=== PATIENT | male | born 1955 | race Caucasian/White ===

== ENCOUNTER → 2018-05-12 08:38 | Outpatient (CLI) | payer OTHER, SELFPAY ==
[2018-05-12 10:06] LABS: Hemoglobin A1C% w Est Avg Glu 5.9 % (4.0-6.0)
[2018-05-12 10:19] LABS: Alanine Aminotransferase 52 IU/L (21-72); Albumin 4.4 g/dL (3.5-5.0); Albumin Globulin Ratio 1.9 (1.0-2.8); Alkaline Phosphatase 52 U/L (38-126); Aspartate Aminotransferase 29 IU/L (17-59); Bilirubin Total 0.9 mg/dL (0.2-1.3); Bilirubin Unconjugated 0.7 mg/dL (0.0-1.1); Cholesterol 186 mg/dL (140-199); Globulin 2.3 g/dL (1.7-4.1); Glucose 118 mg/dL (80-110); HDL Cholesterol 54 mg/dL (40-60); HEMOLYSIS < 15 (0-50); LDL Cholesterol Calculated 110 mg/dL (<100); Total Protein 6.7 g/dL (6.3-8.2); Triglycerides 112 mg/dL (35-150)
== END ==
PROVIDERS: Visit Provider Naturopath
DX: E88.81 Metabolic syndrome and other insulin resistance (principal); I10 Essential (primary) hypertension
CPT/HCPCS: 36415; 80061; 80076; 82947; 83036

== ENCOUNTER → 2018-08-21 09:17 | Outpatient (CLI) | payer OTHER, SELFPAY ==
--- NOTE | 2018-08-21 | DI.US.S_ITS ---
PROCEDURE: US SCROTUM INDICATIONS: TESTICULAR PAIN TECHNIQUE: Real-time scanning was performed of the scrotum and testicles, with image documentation. Color and pulse Doppler interrogation was performed of both testicles. COMPARISON: None. FINDINGS: Right: Testicle is normal in size at 4.2 x 3.3 x 2.7 cm, and homogenous in echotexture. Epididymis is normal in overall size and morphology. No hydrocele or varicoceles. Overlying scrotal skin is normal in thickness. Left: Testicle is normal in size at 3.6 x 2.8 x 1.8 cm, and homogeneous in echotexture. Epididymis is normal in overall size and morphology. Subcentimeter left epididymal cyst. No hydrocele. Mild varicocele. Overlying scrotal skin is normal in thickness. Doppler: Color and pulse Doppler demonstrate normal and symmetric arterial flow in both testicles. IMPRESSION: 1. Normal testicles bilaterally. 2. Mild left hydrocele. 3. Subcentimeter left epididymal cyst. Dictated by: Robert WOLF Interpreted: Jolene Ahumada MD on 08/21/2018 at 11:57 Approved by: Jolene Ahumada M.D. on 08/21/2018 at 15:15
== END ==
PROVIDERS: PCP Naturopath; Visit Provider Naturopath
DX: N50.819 Testicular pain, unspecified (principal); N43.3 Hydrocele, unspecified; N50.3 Cyst of epididymis
CPT/HCPCS: 76870

== ENCOUNTER → 2019-03-01 10:09 | Outpatient (CLI) | payer OTHER, SELFPAY ==
[2019-03-01 11:09] LABS: Hemoglobin A1C% w Est Avg Glu 5.5 % (4.0-6.0)
[2019-03-01 11:14] LABS: Cholesterol 234 mg/dL (140-199); Glucose 108 mg/dL (80-110); HDL Cholesterol 50 mg/dL (40-60); LDL Cholesterol Calculated 157 mg/dL (<100); Triglycerides 136 mg/dL (35-150)
[2019-03-06 11:31] LABS: Insulin Level Total 7.1 uIU/mL (2.0-19.6)
== END ==
PROVIDERS: PCP Naturopath; Visit Provider Naturopath
DX: R73.9 Hyperglycemia, unspecified (principal); I10 Essential (primary) hypertension; E88.81 Metabolic syndrome and other insulin resistance
CPT/HCPCS: 36415; 80061; 82947; 83036; 83525

== ENCOUNTER → 2019-06-24 15:56 | Outpatient (CLI) | payer OTHER, SELFPAY ==
[2019-06-24 17:38] LABS: Hemoglobin A1C% w Est Avg Glu 5.4 % (4.0-6.0)
[2019-06-27 14:09] LABS: PSA Free % 15 % (calc) (> 25); PSA, Total 1.3 ng/mL (< 4.1)
== END ==
PROVIDERS: PCP Naturopath; Referring Provider Naturopath; Visit Provider Naturopath
DX: N40.1 Benign prostatic hyperplasia with lower urinary tract symptoms (principal); E88.81 Metabolic syndrome and other insulin resistance
CPT/HCPCS: 36415; 83036; 84153; 84154

== ENCOUNTER → 2019-06-27 15:12 | Outpatient (CLI) | payer OTHER, SELFPAY ==
--- NOTE | 2019-06-27 | DI.RAD.S_ITS ---
PROCEDURE: XR KNEE RT 1TO2V INDICATIONS: Right knee pain TECHNIQUE: 2 views of the knee were acquired. COMPARISON: None. FINDINGS: Bones: No fractures or dislocations. No suspicious bony lesions. There is moderately severe medial compartment joint space narrowing on the frontal projection and mild to moderate lateral compartment narrowing. No trauma or loose body found. Soft tissues: No joint effusion. No suspicious soft tissue calcifications. IMPRESSION: Asymmetric degenerative osteoarthritis at the tibial plateau greater medially than laterally. No effusion found. Dictated by: Wilner Ruiz M.D. on 06/27/2019 at 15:41 Approved by: Wilner Ruiz M.D. on 06/27/2019 at 15:42
== END ==
PROVIDERS: PCP Naturopath; Referring Provider Naturopath; Visit Provider Naturopath
DX: M25.561 Pain in right knee (principal); M17.11 Unilateral primary osteoarthritis, right knee
CPT/HCPCS: 73560

== ENCOUNTER → 2020-08-17 14:23 | Outpatient (CLI) | payer OTHER, SELFPAY ==
[2020-08-17 14:55] LABS: Alanine Aminotransferase 26 IU/L (<50); Albumin 4.2 g/dL (3.5-5.0); Albumin Globulin Ratio 1.6 (1.0-2.8); Alkaline Phosphatase 53 U/L (38-126); Aspartate Aminotransferase 26 IU/L (17-59); BUN Creatinine Ratio 16.3 (6-22); Bilirubin Total 0.3 mg/dL (0.2-1.3); Blood Urea Nitrogen 15 mg/dL (9-20); Calcium 9.4 mg/dL (8.4-10.2); Carbon Dioxide 25 mmol/L (22-32); Chloride 107 mmol/L (98-107); Estimated Glomerular Filt Rate > 60.0 mL/min (>60); Globulin 2.7 g/dL (1.7-4.1); Glucose 112 mg/dL (80-110); HEMOLYSIS < 15 (0-50); Sodium 139 mmol/L (137-145); Total Protein 6.9 g/dL (6.3-8.2)
[2020-08-17 14:56] LABS: Hemoglobin A1C% w Est Avg Glu 5.6 % (4.0-6.0)
[2020-08-17 15:27] LABS: Prostate Specific Antigen Scrn 1.68 ng/mL (0.1-4.0)
[2020-08-17 15:30] LABS: Testosterone 172 ng/dL (71.8-623)
== END ==
PROVIDERS: PCP Student in an Organized Health Care Education/Training Program; Referring Provider Student in an Organized Health Care Education/Training Program; Visit Provider Student in an Organized Health Care Education/Training Program
DX: E78.00 Pure hypercholesterolemia, unspecified (principal); Z79.1 Long term (current) use of non-steroidal anti-inflammatories (NSAID); Z12.5 Encounter for screening for malignant neoplasm of prostate; R53.83 Other fatigue; R63.5 Abnormal weight gain
CPT/HCPCS: 36415; 80053; 83036; 84403; G0103

== ENCOUNTER → 2021-03-03 09:41 | Outpatient (CLI) | payer MEDICARE, OTHER, SELFPAY ==
--- NOTE | 2021-04-06 08:53 | PM.CARDMON.1 ---
[employer]imator Report Referral & Results Date Patient Seen: 03/09/21 Requesting provider: David Hernandez Indication: Syncope Duration of monitoring (days): 10 Diary information: There were 3 patient triggered events and 1 patient diary entry Patient triggered events were associated with (within 45 seconds) sinus rhythm and SVT Patient diary event was associated with SVT Data: Minimum heart rate identified was 40 beats per minute at 04:01 on 03/16/2021 Maximum sinus heart rate was 169 beats per minute at 10:23 on 03/17/2021 Maximum overall heart rate was 218 beats per minute at 19:37 on 03/14/2021 during a run of SVT Less than 1% of identified beats were ventricular or supraventricular ectopic in origin, which would classify them as rare. There were 7 runs of SVT the fastest at the above-mentioned rate of 218 beats per minute lasted for 5 minutes and 11 seconds which was also the longest run Impression: 10 day residential monitor demonstrating rare relatively brief but Andrews runs of SVT This may well correlate with patient events given patient diary entry Clinical correlation suggested
== END ==
PROVIDERS: PCP Student in an Organized Health Care Education/Training Program; Referring Provider Student in an Organized Health Care Education/Training Program; Visit Provider Student in an Organized Health Care Education/Training Program
DX: R55 Syncope and collapse (principal)
CPT/HCPCS: 93246; 93248

== ENCOUNTER → 2021-03-17 07:41 | Outpatient (CLI) | payer MEDICARE, OTHER, SELFPAY ==
--- NOTE | 2021-03-17 07:43 | DI.US.S_ITS ---
PROCEDURE: US ABD AORTA ANEURYSM SCREEN INDICATIONS: SCREENING TECHNIQUE: Real time scanning was performed of the aorta and iliac arteries, with image documentation. COMPARISON: None. FINDINGS: Aorta: Proximal aortic diameter measures 2.7 cm. Mid-aorta measures of 2.3 cm. Distal aortic diameter is 1.9 cm. Iliac arteries: Right common iliac artery measures 1.4 cm. Left common iliac artery measures 1 is.5 cm. IMPRESSION: No aneursymal dilation. Dictated by: Jolene Ahumada M.D. on 03/17/2021 at 16:22 Approved by: Jolene Ahumada M.D. on 03/17/2021 at 16:23
== END ==
PROVIDERS: PCP Student in an Organized Health Care Education/Training Program; Referring Provider Student in an Organized Health Care Education/Training Program; Visit Provider Student in an Organized Health Care Education/Training Program
DX: Z87.891 Personal history of nicotine dependence (principal); Z13.6 Encounter for screening for cardiovascular disorders
CPT/HCPCS: 76706

== ENCOUNTER → 2021-09-24 07:05 | Outpatient (CLI) | payer MEDICARE, OTHER, SELFPAY ==
[2021-09-24 08:24] LABS: Add Manual Diff / Slide Review NO; Basophils Absolute Auto 0 /uL (0-100); Basophils Percent Auto 0.9 % (0-2); Eosinophils Absolute Auto 200 /uL (0-450); Hematocrit 39.1 % (41-53); Hemoglobin 13.8 g/dL (13.5-17.5); Lymphocytes Absolute Auto 1900 /uL (1100-4500); Lymphocytes Percent Auto 39.8 % (25-40); Mean Corpuscular HGB Conc 35.4 % (30-36); Mean Corpuscular Hemoglobin 32.9 PG (26-34); Mean Corpuscular Volume 92.9 fL (80-100); Monocytes Absolute Auto 300 /uL (0-900); Monocytes Percent Auto 6.8 % (3-14); Neutrophils Absolute Auto 2300 /uL (1500-7000); Neutrophils Percent Auto 48.5 % (50-75); Platelet Count 211 X10^3/uL (150-400); Red Blood Cell Count 4.21 X10^6/uL (4.5-5.9); Red Cell Distribution Width 12.6 % (11.6-14.8); White Blood Cell Count 4.7 X10^3/uL (4.5-11.0)
[2021-09-24 08:44] LABS: Alanine Aminotransferase 65 IU/L (<50); Albumin 4.3 g/dL (3.5-5.0); Albumin Globulin Ratio 1.7 (1.0-2.8); Alkaline Phosphatase 48 U/L (38-126); Aspartate Aminotransferase 37 IU/L (17-59); BUN Creatinine Ratio 14.8 (6-22); Bilirubin Total 0.6 mg/dL (0.2-1.3); Blood Urea Nitrogen 12 mg/dL (9-20); C-Reactive Protein Quant < 0.5 mg/dL (<1.0); Calcium 9.1 mg/dL (8.4-10.2); Carbon Dioxide 26 mmol/L (22-32); Chloride 107 mmol/L (98-107); Estimated Glomerular Filt Rate > 60 mL/min (>60); Globulin 2.6 g/dL (1.7-4.1); Glucose 124 mg/dL (80-110); HEMOLYSIS < 15 (0-50); Potassium 3.9 mmol/L (3.4-5.1); Sodium 139 mmol/L (137-145); Total Protein 6.9 g/dL (6.3-8.2)
[2021-09-24 08:49] LABS: Glucose Fasting 125 mg/dL (80-110)
[2021-09-24 08:54] LABS: Luteinizing Hormone 6.27 mIU/mL
[2021-09-24 09:09] LABS: Cortisol Random 9.33 ug/dL
[2021-09-24 09:10] LABS: Estradiol, Total 23.1 pg/mL
[2021-09-24 09:25] LABS: Free T3, Triiodothyronine Free 4.06 pg/mL (2.77-5.27); Free T4, Direct Thyroxine 0.99 ng/dL (0.78-2.19)
[2021-09-24 09:38] LABS: Thyroid Stimulating Hormone 2.26 uIU/mL (0.47-4.68)
[2021-09-24 09:45] LABS: Folate > 20.0 ng/mL (2.76-20.0); Vitamin B12 881 pg/mL (239-931)
[2021-09-24 09:51] LABS: Glucose Tol Interpretation INTERPRETATION
[2021-09-24 10:05] LABS: Glucose 3 Hour 143 mg/dL (70-115)
[2021-09-24 10:05] LABS: Glucose 2 Hour 145 mg/dL (70-140)
[2021-09-24 10:06] LABS: Glucose 1 Hour 120 mg/dL (70-170)
[2021-09-24 10:46] LABS: Glucose 4 Hour 140 mg/dL (70-115)
[2021-09-25 06:18] LABS: Adrenocorticotropic Hormone 28.7 pg/mL (7.2-63.3); Complement C3 119 mg/dL (82-167)
[2021-09-25 21:18] LABS: Anti Thyroglobulin Antibody <1.0 IU/mL (0.0-0.9); Growth Hormone < 0.1 ng/mL (0.0-10.0); Thyroid Peroxidase Antibodies 11 IU/mL (0-34)
[2021-09-26 08:09] LABS: Insulin #2 19.1 uIU/mL (Not Estab.); Insulin #4 19.2 uIU/mL (Not Estab.)
[2021-09-26 17:36] LABS: IGF-1 194 ng/mL (64-240)
[2021-09-27 08:18] LABS: Cholesterol, Total 260 mg/dL (100-199); HDL-Cholesterol 52 mg/dL (>39); HDL-Particle (Total) 34.6 umol/L (>=30.5); LDL Particle 2562 nmol/L (<1000); LDL Size 20.9 nm (>20.5); LDL-Cholsterol 177 mg/dL (0-99); LP-IR Score 51 (<=45); Small LDL- Particle 1243 nmol/L (<=527); Triglycerides 169 mg/dL (0-149)
[2021-09-27 12:11] LABS: Leptin 15.7 ng/mL (.)
[2021-09-28 11:45] LABS: Adiponectin 2.3 ug/mL (3.0-21.1)
[2021-09-29 14:17] LABS: Melanocyte Stim Hormone 13 pg/mL (0-40)
[2021-10-01 17:09] LABS: Testosterone Free 6.31 ng/dL (5.00-21.00); Testosterone Total 315.4 ng/dL (264.0-916.0)
== END ==
PROVIDERS: PCP Student in an Organized Health Care Education/Training Program; Referring Provider Physician Assistant; Visit Provider Physician Assistant
DX: R73.03 Prediabetes (principal); E88.81 Metabolic syndrome and other insulin resistance; R73.01 Impaired fasting glucose; R73.09 Other abnormal glucose; I10 Essential (primary) hypertension; E78.5 Hyperlipidemia, unspecified; R53.83 Other fatigue; G47.30 Sleep apnea, unspecified; R79.89 Other specified abnormal findings of blood chemistry; K21.9 Gastro-esophageal reflux disease without esophagitis; M25.50 Pain in unspecified joint; N40.0 Benign prostatic hyperplasia without lower urinary tract symptoms; I65.29 Occlusion and stenosis of unspecified carotid artery; Z78.9 Other specified health status; E27.40 Unspecified adrenocortical insufficiency
CPT/HCPCS: 36415; 80053; 80061; 82024; 82533; 82542; 82607; 82670; 82746; 83002; 83036; 83519; 83520; 83525; 83704; 84305; 84402; 84403; 84439; 84443; 84481; 84681; 85025; 86140; 86160; 86277; 86376; 86800

== ENCOUNTER → 2021-11-19 10:52 | Outpatient (CLI) | payer MEDICARE, OTHER, SELFPAY ==
--- NOTE | 2021-11-19 10:58 | DI.RAD.S_ITS ---
PROCEDURE: XR CHEST 2V INDICATIONS: SHORTNESS OF BREATH/COVID TECHNIQUE: 2 views of the chest were acquired. COMPARISON: None. FINDINGS: Surgical changes and devices: None. Lungs and pleura: Lungs are clear. No pleural effusions or pneumothorax. Mediastinum: Mediastinal contours are normal. Heart size is normal. Bones and chest wall: No suspicious bony abnormalities. Soft tissues appear unremarkable. IMPRESSION: No acute cardiopulmonary findings. Dictated by: Yadira Vega M.D. on 11/19/2021 at 15:42 Approved by: Yadira Vega M.D. on 11/19/2021 at 15:42
[2021-11-19 12:59] LABS: C-Reactive Protein Quant 0.5 mg/dL (<1.0)
[2021-11-19 13:07] LABS: Erythrocyte Sedimentation Rate 7 MM/HR (0-15)
[2021-11-19 13:08] LABS: Troponin I < 0.012 ng/mL (0.01-0.034)
== END ==
PROVIDERS: PCP Student in an Organized Health Care Education/Training Program; Referring Provider Internal Medicine Cardiovascular Disease; Visit Provider Internal Medicine Cardiovascular Disease
DX: U07.1 COVID-19 (principal)
CPT/HCPCS: 36415; 71046; 84484; 85651; 86140

== ENCOUNTER → 2022-01-12 07:16 | Outpatient (CLI) | payer MEDICARE, OTHER, SELFPAY ==
[2022-01-12 11:01] LABS: Add Manual Diff / Slide Review NO; Basophils Absolute Auto 100 /uL (0-100); Basophils Percent Auto 1.2 % (0-2); Eosinophils Absolute Auto 200 /uL (0-450); Eosinophils Percent Auto 3.9 % (2-4); Hematocrit 42.5 % (41-53); Hemoglobin 14.7 g/dL (13.5-17.5); Lymphocytes Absolute Auto 1600 /uL (1100-4500); Lymphocytes Percent Auto 30.1 % (25-40); Mean Corpuscular HGB Conc 34.5 % (30-36); Mean Corpuscular Hemoglobin 32.6 PG (26-34); Mean Corpuscular Volume 94.6 fL (80-100); Monocytes Absolute Auto 300 /uL (0-900); Neutrophils Absolute Auto 3200 /uL (1500-7000); Neutrophils Percent Auto 58.8 % (50-75); Platelet Count 214 X10^3/uL (150-400); Red Cell Distribution Width 12.7 % (11.6-14.8); White Blood Cell Count 5.4 X10^3/uL (4.5-11.0)
[2022-01-12 11:13] LABS: Hemoglobin A1C% w Est Avg Glu 5.9 % (4.0-6.0)
[2022-01-12 11:38] LABS: Alanine Aminotransferase 44 IU/L (<50); Albumin 4.1 g/dL (3.5-5.0); Albumin Globulin Ratio 1.6 (1.0-2.8); Alkaline Phosphatase 40 U/L (38-126); Aspartate Aminotransferase 27 IU/L (17-59); BUN Creatinine Ratio 17.1 (6-22); Bilirubin Total 0.6 mg/dL (0.2-1.3); Blood Urea Nitrogen 13 mg/dL (9-20); Calcium 8.6 mg/dL (8.4-10.2); Carbon Dioxide 24 mmol/L (22-32); Chloride 107 mmol/L (98-107); Cholesterol 177 mg/dL (140-199); Estimated Glomerular Filt Rate > 60 mL/min (>60); Globulin 2.5 g/dL (1.7-4.1); Glucose 110 mg/dL (80-110); HDL Cholesterol 60 mg/dL (40-60); HEMOLYSIS < 15 (0-50); LDL Cholesterol Calculated 92 mg/dL (<100); Potassium 4.1 mmol/L (3.4-5.1); Sodium 138 mmol/L (137-145); Total Protein 6.6 g/dL (6.3-8.2); Triglycerides 125 mg/dL (35-150)
[2022-01-12 11:43] LABS: High Sensitivity CRP - Cardiac 1.2 mg/L (1.0-3.0)
[2022-01-12 11:53] LABS: Free T3, Triiodothyronine Free 4.19 pg/mL (2.77-5.27); Free T4, Direct Thyroxine 1.02 ng/dL (0.78-2.19)
[2022-01-12 11:56] LABS: Luteinizing Hormone 4.55 mIU/mL
[2022-01-12 12:06] LABS: Thyroid Stimulating Hormone 1.18 uIU/mL (0.47-4.68)
[2022-01-12 12:10] LABS: Cortisol AM (Before 10AM) 9.37 ug/dL (4.46-22.7)
[2022-01-12 12:45] LABS: Folate > 20.0 ng/mL (2.76-20.0); Vitamin B12 758 pg/mL (239-931)
[2022-01-12 13:48] LABS: Glucose 1 Hour 132 mg/dL (70-170)
[2022-01-12 13:48] LABS: Glucose 30 minute 125 mg/dL (70-180)
[2022-01-12 13:48] LABS: Glucose 1 Hour 30 Minutes 145 mg/dL (70-155)
[2022-01-12 13:49] LABS: Glucose Fasting 104 mg/dL (80-110)
[2022-01-13 09:46] LABS: Complement C3 122 mg/dL (82-167)
[2022-01-14 07:27] LABS: Glucose 1 hour 131 mg/dL (65-199); Glucose 2 hour 151 mg/dL (65-139); Glucose 90 minutes 141 mg/dL (65-139); Glucose Fasting 112 mg/dL (65-99); Insulin 1 hour 32.1 uIU/mL (0.0-163.5); Insulin 2 hour 51.6 uIU/mL (0.0-145.4); Insulin 90 minutes 91.9 uIU/mL (Not Estab.)
[2022-01-14 22:38] LABS: IGF-1 223 ng/mL (59-230)
[2022-01-17 12:07] LABS: Leptin 22.8 ng/mL (.)
[2022-01-19 10:32] LABS: Melanocyte Stim Hormone 17 pg/mL (0-40)
[2022-01-29 18:51] LABS: Percent Free Testosterone 1.53 % (1.50-4.20); Testosterone Free 4.86 ng/dL (5.00-21.00); Testosterone Total 317.6 ng/dL (264.0-916.0)
== END ==
PROVIDERS: PCP Student in an Organized Health Care Education/Training Program; Referring Provider Physician Assistant; Visit Provider Physician Assistant
DX: R73.01 Impaired fasting glucose (principal); R73.03 Prediabetes; R73.09 Other abnormal glucose; I10 Essential (primary) hypertension; E78.5 Hyperlipidemia, unspecified; I65.29 Occlusion and stenosis of unspecified carotid artery; M19.90 Unspecified osteoarthritis, unspecified site; N40.0 Benign prostatic hyperplasia without lower urinary tract symptoms; Z78.9 Other specified health status; E27.40 Unspecified adrenocortical insufficiency; R53.83 Other fatigue; G47.30 Sleep apnea, unspecified; R79.89 Other specified abnormal findings of blood chemistry; R06.02 Shortness of breath; M25.50 Pain in unspecified joint; G47.33 Obstructive sleep apnea (adult) (pediatric); Z99.89 Dependence on other enabling machines and devices
CPT/HCPCS: 36415; 80053; 80061; 82024; 82533; 82607; 82670; 82746; 82951; 82952; 83002; 83036; 83519; 83520; 83525; 84305; 84402; 84403; 84439; 84443; 84481; 85025; 86140; 86160

== ENCOUNTER → 2022-04-27 07:52 | Outpatient (CLI) | payer MEDICARE, OTHER, SELFPAY ==
[2022-04-27 09:25] LABS: Add Manual Diff / Slide Review NO; Basophils Absolute Auto 0 /uL (0-100); Basophils Percent Auto 0.6 % (0-2); Eosinophils Absolute Auto 300 /uL (0-450); Eosinophils Percent Auto 5.5 % (2-4); Hematocrit 44.5 % (41-53); Hemoglobin 15.3 g/dL (13.5-17.5); Lymphocytes Absolute Auto 1100 /uL (1100-4500); Lymphocytes Percent Auto 19.7 % (25-40); Mean Corpuscular HGB Conc 34.3 % (30-36); Mean Corpuscular Volume 93.1 fL (80-100); Monocytes Absolute Auto 500 /uL (0-900); Monocytes Percent Auto 8.8 % (3-14); Neutrophils Absolute Auto 3500 /uL (1500-7000); Neutrophils Percent Auto 65.4 % (50-75); Platelet Count 203 X10^3/uL (150-400); Red Blood Cell Count 4.78 X10^6/uL (4.5-5.9); Red Cell Distribution Width 12.8 % (11.6-14.8); White Blood Cell Count 5.4 X10^3/uL (4.5-11.0)
[2022-04-27 09:33] LABS: Hemoglobin A1C% w Est Avg Glu 6.4 % (4.0-6.0)
[2022-04-27 10:35] LABS: Luteinizing Hormone 4.92 mIU/mL
[2022-04-27 10:37] LABS: Free T4, Direct Thyroxine 1.07 ng/dL (0.78-2.19)
[2022-04-27 10:51] LABS: Thyroid Stimulating Hormone 1.15 uIU/mL (0.47-4.68)
[2022-04-27 11:26] LABS: Glucose 1 Hour 162 mg/dL (70-170)
[2022-04-27 11:27] LABS: Glucose 30 minute 156 mg/dL (70-180)
[2022-04-27 11:27] LABS: Glucose Fasting 146 mg/dL (80-110)
[2022-04-27 11:28] LABS: Alanine Aminotransferase 69 IU/L (<50); Albumin 4.1 g/dL (3.5-5.0); Albumin Globulin Ratio 1.5 (1.0-2.8); Alkaline Phosphatase 62 U/L (38-126); Aspartate Aminotransferase 47 IU/L (17-59); BUN Creatinine Ratio 17.8 (6-22); Bilirubin Total 0.8 mg/dL (0.2-1.3); Blood Urea Nitrogen 13 mg/dL (9-20); Calcium 8.8 mg/dL (8.4-10.2); Carbon Dioxide 26 mmol/L (22-32); Chloride 102 mmol/L (98-107); Estimated Glomerular Filt Rate > 60 mL/min (>60); Globulin 2.7 g/dL (1.7-4.1); Glucose 144 mg/dL (80-110); HEMOLYSIS < 15 (0-50); Potassium 3.8 mmol/L (3.4-5.1); Sodium 138 mmol/L (137-145); Total Protein 6.8 g/dL (6.3-8.2)
[2022-04-27 11:29] LABS: Glucose 1 Hour 30 Minutes 163 mg/dL (70-155)
[2022-04-27 11:57] LABS: Cortisol Random 11.3 ug/dL
[2022-04-27 12:16] LABS: Vitamin B12 724 pg/mL (239-931)
[2022-04-29 10:03] LABS: Adrenocorticotropic Hormone 31.7 pg/mL (7.2-63.3)
[2022-04-29 11:09] LABS: Cholesterol, Total 155 mg/dL (100-199); HDL-Cholesterol 56 mg/dL (>39); Historical Reading Comment: (.); LDL Particle 1025 nmol/L (<1000); LDL Size 20.1 nm (>20.5); LDL-Cholsterol 79 mg/dL (0-99); LP-IR Score 46 (<=45); Small LDL- Particle 711 nmol/L (<=527); Triglycerides 111 mg/dL (0-149)
[2022-04-30 06:40] LABS: Glucose 1 hour 142 mg/dL (70-199); Glucose 2 hour 150 mg/dL (70-139); Glucose 90 minutes 157 mg/dL (70-139); Glucose Fasting 149 mg/dL (70-99); Insulin, Fasting 26.4 uIU/mL (2.6-24.9)
[2022-05-03 12:48] LABS: Adiponectin 2.8 ug/mL (3.0-21.1)
[2022-05-04 07:07] LABS: IGF-1 238 ng/mL (59-230)
[2022-05-05 08:47] LABS: Percent Free Testosterone 2.28 % (1.50-4.20); Testosterone Free 7.15 ng/dL (5.00-21.00); Testosterone Total 313.6 ng/dL (264.0-916.0)
[2022-05-06 09:55] LABS: Melanocyte Stim Hormone <8 pg/mL (0-40)
== END ==
PROVIDERS: PCP Student in an Organized Health Care Education/Training Program; Referring Provider Family Medicine Sports Medicine; Visit Provider Family Medicine Sports Medicine
DX: R73.03 Prediabetes (principal); I10 Essential (primary) hypertension; E78.5 Hyperlipidemia, unspecified; M19.90 Unspecified osteoarthritis, unspecified site; G47.30 Sleep apnea, unspecified; R73.01 Impaired fasting glucose; R79.89 Other specified abnormal findings of blood chemistry; R06.02 Shortness of breath; R73.09 Other abnormal glucose; K21.9 Gastro-esophageal reflux disease without esophagitis; M25.50 Pain in unspecified joint; N40.0 Benign prostatic hyperplasia without lower urinary tract symptoms; I65.29 Occlusion and stenosis of unspecified carotid artery; G47.33 Obstructive sleep apnea (adult) (pediatric); Z99.89 Dependence on other enabling machines and devices; Z78.9 Other specified health status; E27.40 Unspecified adrenocortical insufficiency; R53.83 Other fatigue
CPT/HCPCS: 36415; 80053; 80061; 82024; 82533; 82607; 82670; 82951; 82952; 83002; 83036; 83519; 83520; 83525; 83704; 84305; 84402; 84403; 84439; 84443; 84481; 85025

== ENCOUNTER → 2022-05-30 07:48 | Outpatient (CLI) | payer MEDICARE, OTHER, SELFPAY ==
[2022-05-30 10:38] LABS: Alanine Aminotransferase 66 IU/L (<50); Albumin 4.1 g/dL (3.5-5.0); Albumin Globulin Ratio 1.6 (1.0-2.8); Alkaline Phosphatase 48 U/L (38-126); Aspartate Aminotransferase 34 IU/L (17-59); BUN Creatinine Ratio 16.5 (6-22); Bilirubin Total 0.6 mg/dL (0.2-1.3); Blood Urea Nitrogen 13 mg/dL (9-20); Calcium 8.8 mg/dL (8.4-10.2); Carbon Dioxide 26 mmol/L (22-32); Chloride 106 mmol/L (98-107); Estimated Glomerular Filt Rate > 60 mL/min (>60); Globulin 2.5 g/dL (1.7-4.1); Glucose 117 mg/dL (80-110); HEMOLYSIS < 15 (0-50); Sodium 140 mmol/L (137-145); Total Protein 6.6 g/dL (6.3-8.2)
[2022-06-01 08:22] LABS: Insulin Level Total 21.8 uIU/mL (2.6-24.9)
[2022-06-02 14:32] LABS: GAD-65 Antibody <5.0 U/mL (0.0-5.0)
== END ==
PROVIDERS: PCP Student in an Organized Health Care Education/Training Program; Referring Provider Physician Assistant; Visit Provider Physician Assistant
DX: E88.1 Lipodystrophy, not elsewhere classified (principal); E11.9 Type 2 diabetes mellitus without complications; I10 Essential (primary) hypertension; E78.5 Hyperlipidemia, unspecified
CPT/HCPCS: 36415; 80053; 83525; 86337; 86341

== ENCOUNTER → 2022-08-24 07:01 | Outpatient (CLI) | payer MEDICARE, OTHER, SELFPAY ==
[2022-08-24 08:13] LABS: Add Manual Diff / Slide Review NO; Basophils Absolute Auto 0 /uL (0-100); Basophils Percent Auto 0.9 % (0-2); Eosinophils Absolute Auto 200 /uL (0-450); Eosinophils Percent Auto 4.6 % (2-4); Hematocrit 40.8 % (41-53); Hemoglobin 14.4 g/dL (13.5-17.5); Lymphocytes Absolute Auto 1600 /uL (1100-4500); Lymphocytes Percent Auto 30.8 % (25-40); Mean Corpuscular HGB Conc 35.3 % (30-36); Mean Corpuscular Hemoglobin 32.9 PG (26-34); Monocytes Absolute Auto 300 /uL (0-900); Monocytes Percent Auto 5.8 % (3-14); Neutrophils Absolute Auto 3100 /uL (1500-7000); Neutrophils Percent Auto 57.9 % (50-75); Platelet Count 223 X10^3/uL (150-400); Red Blood Cell Count 4.39 X10^6/uL (4.5-5.9); Red Cell Distribution Width 13.2 % (11.6-14.8); White Blood Cell Count 5.3 X10^3/uL (4.5-11.0)
[2022-08-24 08:52] LABS: Alanine Aminotransferase 43 IU/L (<50); Albumin 4.3 g/dL (3.5-5.0); Albumin Globulin Ratio 1.8 (1.0-2.8); Alkaline Phosphatase 44 U/L (38-126); Aspartate Aminotransferase 27 IU/L (17-59); BUN Creatinine Ratio 20.3 (6-22); Bilirubin Total 0.4 mg/dL (0.2-1.3); Blood Urea Nitrogen 14 mg/dL (9-20); Carbon Dioxide 24 mmol/L (22-32); Chloride 107 mmol/L (98-107); Cholesterol 144 mg/dL (140-199); Estimated Glomerular Filt Rate > 60 mL/min (>60); Globulin 2.4 g/dL (1.7-4.1); Glucose 124 mg/dL (80-110); HDL Cholesterol 52 mg/dL (40-60); HEMOLYSIS < 15 (0-50); LDL Cholesterol Calculated 65 mg/dL (<100); Potassium 3.8 mmol/L (3.4-5.1); Sodium 140 mmol/L (137-145); Total Protein 6.7 g/dL (6.3-8.2); Triglycerides 133 mg/dL (35-150)
[2022-08-24 09:07] LABS: Free T3, Triiodothyronine Free 4.02 pg/mL (2.77-5.27)
[2022-08-24 09:21] LABS: Thyroid Stimulating Hormone 1.09 uIU/mL (0.47-4.68)
[2022-08-24 09:22] LABS: Cortisol AM (Before 10AM) 8.84 ug/dL (4.46-22.7)
[2022-08-24 09:24] LABS: Estradiol, Total 24.4 pg/mL
[2022-08-24 10:19] LABS: Glucose 1 Hour 30 Minutes 104 mg/dL (70-155)
[2022-08-24 10:19] LABS: Glucose 30 minute 110 mg/dL (70-180)
[2022-08-24 10:19] LABS: Glucose Fasting 116 mg/dL (80-110)
[2022-08-24 10:27] LABS: Glucose 1 Hour 108 mg/dL (70-170)
[2022-08-24 13:18] LABS: Vitamin B12 842 pg/mL (239-931)
[2022-08-25 06:10] LABS: x Labcorp Estim. Avg Glu (eAG) 114 mg/dL (.); x Labcorp Hemoglobin A1c 5.6 % (4.8-5.6)
[2022-08-25 06:10] LABS: C Peptide 5.8 ng/mL (1.1-4.4)
[2022-08-26 09:32] LABS: Adrenocorticotropic Hormone 17.4 pg/mL (7.2-63.3)
[2022-08-26 12:11] LABS: Cholesterol, Total 137 mg/dL (100-199); Glucose 1 hour 117 mg/dL (70-199); Glucose 2 hour 111 mg/dL (70-139); Glucose 90 minutes 116 mg/dL (70-139); Glucose Fasting 127 mg/dL (70-99); HDL-Cholesterol 49 mg/dL (>39); HDL-Particle (Total) 39.1 umol/L (>=30.5); Insulin 1 hour 39.5 uIU/mL (0.0-163.5); Insulin 2 hour 22.7 uIU/mL (0.0-145.4); Insulin 90 minutes 22.5 uIU/mL (Not Estab.); Insulin, Fasting 42.3 uIU/mL (2.6-24.9); LDL Particle 930 nmol/L (<1000); LDL-Cholsterol 65 mg/dL (0-99); LP-IR Score <25 (<=45); Leptin 11.5 ng/mL (.); Small LDL- Particle 569 nmol/L (<=527); Triglycerides 130 mg/dL (0-149)
[2022-08-26 15:21] LABS: IGF-1 166 ng/mL (59-230)
[2022-08-31 13:36] LABS: Melanocyte Stim Hormone 15 pg/mL (0-40)
[2022-09-01 04:37] LABS: Percent Free Testosterone 1.62 % (1.50-4.20); Testosterone Total 567.7 ng/dL (264.0-916.0)
[2022-09-01 11:36] LABS: Adiponectin 3.1 ug/mL (3.0-21.1)
== END ==
PROVIDERS: PCP Student in an Organized Health Care Education/Training Program; Referring Provider Physician Assistant; Visit Provider Physician Assistant
DX: E11.9 Type 2 diabetes mellitus without complications (principal); E88.81 Metabolic syndrome and other insulin resistance; I10 Essential (primary) hypertension; E78.5 Hyperlipidemia, unspecified; M19.90 Unspecified osteoarthritis, unspecified site; R53.83 Other fatigue; G47.30 Sleep apnea, unspecified; R79.89 Other specified abnormal findings of blood chemistry; R06.02 Shortness of breath; K21.9 Gastro-esophageal reflux disease without esophagitis; M25.50 Pain in unspecified joint; N40.0 Benign prostatic hyperplasia without lower urinary tract symptoms; I65.29 Occlusion and stenosis of unspecified carotid artery; G47.33 Obstructive sleep apnea (adult) (pediatric); Z99.89 Dependence on other enabling machines and devices; Z78.9 Other specified health status
CPT/HCPCS: 80053; 80061; 82024; 82533; 82607; 82670; 82951; 82952; 83002; 83036; 83519; 83520; 83525; 83704; 84305; 84402; 84403; 84439; 84443; 84481; 84681; 85025

== ENCOUNTER → 2022-10-11 09:18 | Outpatient (CLI) | payer MEDICARE, OTHER, SELFPAY ==
--- NOTE | 2022-10-11 09:20 | DI.US.S_ITS ---
PROCEDURE: US RENAL COMPLETE INDICATIONS: presumed renal stones on hip xray; eval bilat for same TECHNIQUE: Real-time scanning was performed of the kidneys and bladder, with image documentation. COMPARISON: None. FINDINGS: Kidneys: Kidneys are normal in size. Right kidney measures 11.7 cm long; left kidney measures 13 cm long. Right renal cortical thickness is 1.0 cm; left renal cortical thickness is 1.3 cm. Renal cortical echotexture is normal. No hydronephrosis or nephrolithiasis. No suspicious solid mass lesions. Bladder: Pre-void bladder volume is 20 mL. Post-void residual is 4 mL. Pre-void images demonstrate no intraluminal masses or stones. On pre-void images, bilateral ureteral jets were not noted with color Doppler interrogation. (Of note, ureteral jets may not be detectable in up to 25% of cases due to insufficient differences in specific gravity between ureteral and bladder urine). Miscellaneous: No free pelvic fluid. IMPRESSION: No sonographic evidence for urolithiasis. No sonographic evidence for obstructive uropathy. Dictated by: Adama Cisse M.D. on 10/11/2022 at 11:08 Approved by: Adama Cisse M.D. on 10/11/2022 at 11:11
== END ==
PROVIDERS: PCP Pediatrics; Referring Provider Pediatrics; Visit Provider Pediatrics
DX: N40.0 Benign prostatic hyperplasia without lower urinary tract symptoms (principal); N28.89 Other specified disorders of kidney and ureter; I10 Essential (primary) hypertension; M15.9 Polyosteoarthritis, unspecified
CPT/HCPCS: 76770

== ENCOUNTER → 2023-02-08 14:25 | Outpatient (CLI) | payer MEDICARE, OTHER, SELFPAY ==
--- NOTE | 2023-02-08 14:27 | DI.RAD.S_ITS ---
PROCEDURE: XR ANKLE LT MIN 3V INDICATIONS: Left ankle strain TECHNIQUE: 3 views of the ankle were acquired. COMPARISON: None. FINDINGS: Bones: No acute fracture. Normal alignment with congruent ankle mortise on nonweightbearing view. No suspicious osseous lesion. Soft tissues: Small tibiotalar joint effusion. Achilles tendon appears normal. Minimal soft tissue swelling overlying the lateral malleolus. Tiny plantar calcaneal enthesophyte. IMPRESSION: 1. No acute fracture. 2. Small tibiotalar joint effusion. Dictated by: Ewelina Huggins M.D. on 02/08/2023 at 17:02 Approved by: Ewelina Huggins M.D. on 02/08/2023 at 17:05
== END ==
PROVIDERS: PCP Pediatrics; Referring Provider Nurse Practitioner Family; Visit Provider Nurse Practitioner Family
DX: M25.472 Effusion, left ankle (principal); S96.912A Strain of unspecified muscle and tendon at ankle and foot level, left foot, initial encounter
CPT/HCPCS: 73610

== ENCOUNTER → 2023-05-23 07:00 | Outpatient (CLI) | payer MEDICARE, OTHER, SELFPAY ==
[2023-05-23 08:03] LABS: Hemoglobin A1C% w Est Avg Glu 5.4 % (4.0-6.0)
[2023-05-23 08:10] LABS: Add Manual Diff / Slide Review NO; Basophils Absolute Auto 0 /uL (0-100); Basophils Percent Auto 0.9 % (0-2); Eosinophils Absolute Auto 100 /uL (0-450); Eosinophils Percent Auto 2.6 % (2-4); Hematocrit 41.8 % (41-53); Hemoglobin 14.5 g/dL (13.5-17.5); Lymphocytes Absolute Auto 1500 /uL (1100-4500); Lymphocytes Percent Auto 29.9 % (25-40); Mean Corpuscular HGB Conc 34.8 % (30-36); Mean Corpuscular Hemoglobin 32.2 PG (26-34); Mean Corpuscular Volume 92.8 fL (80-100); Monocytes Absolute Auto 300 /uL (0-900); Monocytes Percent Auto 6.1 % (3-14); Neutrophils Absolute Auto 3100 /uL (1500-7000); Neutrophils Percent Auto 60.5 % (50-75); Platelet Count 182 X10^3/uL (150-400); Red Blood Cell Count 4.51 X10^6/uL (4.5-5.9); Red Cell Distribution Width 12.7 % (11.6-14.8); White Blood Cell Count 5.2 X10^3/uL (4.5-11.0)
[2023-05-23 08:19] LABS: HEMOLYSIS < 15 (0-50); Iron 132 ug/dL (49-181)
[2023-05-23 08:24] LABS: Alanine Aminotransferase 32 IU/L (<50); Albumin 4.1 g/dL (3.5-5.0); Albumin Globulin Ratio 1.6 (1.0-2.8); Alkaline Phosphatase 45 U/L (38-126); Aspartate Aminotransferase 25 IU/L (17-59); BUN Creatinine Ratio 23.9 (6-22); Bilirubin Total 0.6 mg/dL (0.2-1.3); Blood Urea Nitrogen 16 mg/dL (9-20); Calcium 9.5 mg/dL (8.4-10.2); Carbon Dioxide 22 mmol/L (22-32); Chloride 107 mmol/L (98-107); Estimated Glomerular Filt Rate > 60 mL/min (>60); Globulin 2.6 g/dL (1.7-4.1); Glucose 121 mg/dL (80-110); HEMOLYSIS < 15 (0-50); Potassium 3.8 mmol/L (3.4-5.1); Sodium 138 mmol/L (137-145); Total Protein 6.7 g/dL (6.3-8.2)
[2023-05-23 08:28] LABS: Luteinizing Hormone 10.8 mIU/mL
[2023-05-23 08:29] LABS: Free T3, Triiodothyronine Free 3.16 pg/mL (2.77-5.27); Free T4, Direct Thyroxine 0.97 ng/dL (0.78-2.19)
[2023-05-23 08:30] LABS: Percent Iron Saturation 47 % (20-50); Total Iron Binding Capacity 279 ug/dL (261-462); Transferrin 239 mg/dL (206-381)
[2023-05-23 08:43] LABS: Estradiol, Total 16.8 pg/mL; Thyroid Stimulating Hormone 1.55 uIU/mL (0.47-4.68)
[2023-05-23 08:45] LABS: Cortisol Random 8.92 ug/dL
[2023-05-23 08:47] LABS: Glucose Fasting 122 mg/dL (80-110)
[2023-05-23 08:49] LABS: Ferritin 226 ng/mL (18-464)
[2023-05-23 09:04] LABS: Vitamin B12 829 pg/mL (239-931)
[2023-05-23 10:06] LABS: Glucose 1 Hour 30 Minutes 116 mg/dL (70-155)
[2023-05-23 10:06] LABS: Glucose 30 minute 114 mg/dL (70-180)
[2023-05-23 10:06] LABS: Glucose 1 Hour 112 mg/dL (70-170)
[2023-05-24 07:14] LABS: Adrenocorticotropic Hormone 26.4 pg/mL (7.2-63.3)
[2023-05-25 17:40] LABS: IGF-1 189 ng/mL (59-230)
[2023-05-26 11:10] LABS: Cholesterol, Total 162 mg/dL (100-199); HDL-Cholesterol 63 mg/dL (>39); HDL-Particle (Total) 40.7 umol/L (>=30.5); LDL Particle 1070 nmol/L (<1000); LDL Size 20.6 nm (>20.5); LDL-Cholsterol 85 mg/dL (0-99); LP-IR Score <25 (<=45); Small LDL- Particle 374 nmol/L (<=527); Triglycerides 71 mg/dL (0-149)
[2023-05-26 11:51] LABS: Leptin 8.6 ng/mL (.)
[2023-05-28 14:44] LABS: Insulin #3 22.8 uIU/mL (Not Estab.); Insulin #4 28.5 uIU/mL (Not Estab.)
[2023-05-30 12:36] LABS: Adiponectin 4.1 ug/mL (3.0-21.1)
[2023-05-31 13:36] LABS: Melanocyte Stim Hormone 13 pg/mL (0-40)
[2023-06-01 08:10] LABS: Percent Free Testosterone 3.78 % (1.50-4.20); Testosterone Free 15.08 ng/dL (5.00-21.00)
== END ==
LOC: LAB 07:02
PROVIDERS: PCP Physician Assistant; Referring Provider Physician Assistant; Visit Provider Physician Assistant
DX: E11.9 Type 2 diabetes mellitus without complications (principal); E88.810 Metabolic syndrome; I10 Essential (primary) hypertension; G47.30 Sleep apnea, unspecified
CPT/HCPCS: 80053; 80061; 82024; 82533; 82607; 82670; 82728; 82951; 83002; 83036; 83519; 83520; 83525; 83540; 83550; 83704; 84305; 84402; 84403; 84439; 84443; 84481; 85025

== ENCOUNTER → 2023-09-12 06:54 | Outpatient (CLI) | payer MEDICARE, OTHER, SELFPAY ==
[2023-09-12 08:17] LABS: Add Manual Diff / Slide Review NO; Basophils Absolute Auto 0 /uL (0-100); Basophils Percent Auto 0.6 % (0-2); Eosinophils Absolute Auto 100 /uL (0-450); Eosinophils Percent Auto 2.3 % (2-4); Hematocrit 45.3 % (41-53); Hemoglobin 15.9 g/dL (13.5-17.5); Lymphocytes Absolute Auto 1600 /uL (1100-4500); Lymphocytes Percent Auto 28.7 % (25-40); Mean Corpuscular Volume 94.3 fL (80-100); Monocytes Absolute Auto 400 /uL (0-900); Monocytes Percent Auto 6.7 % (3-14); Neutrophils Absolute Auto 3400 /uL (1500-7000); Neutrophils Percent Auto 61.7 % (50-75); Platelet Count 195 X10^3/uL (150-400); Red Cell Distribution Width 12.2 % (11.6-14.8); White Blood Cell Count 5.5 X10^3/uL (4.5-11.0)
[2023-09-12 08:28] LABS: Hemoglobin A1C% w Est Avg Glu 5.7 % (4.0-6.0)
[2023-09-12 08:36] LABS: HEMOLYSIS < 15 (0-50); Iron 141 ug/dL (49-181)
[2023-09-12 08:37] LABS: Alanine Aminotransferase 41 IU/L (<50); Albumin 4.2 g/dL (3.5-5.0); Albumin Globulin Ratio 1.8 (1.0-2.8); Alkaline Phosphatase 47 U/L (38-126); Aspartate Aminotransferase 29 IU/L (17-59); BUN Creatinine Ratio 18.3 (6-22); Bilirubin Total 0.9 mg/dL (0.2-1.3); Blood Urea Nitrogen 13 mg/dL (9-20); Calcium 9.8 mg/dL (8.4-10.2); Carbon Dioxide 25 mmol/L (22-32); Chloride 108 mmol/L (98-107); Cholesterol 147 mg/dL (140-199); Estimated Glomerular Filt Rate > 60 mL/min (>60); Globulin 2.4 g/dL (1.7-4.1); Glucose 114 mg/dL (80-110); HDL Cholesterol 48 mg/dL (40-60); HEMOLYSIS < 15 (0-50); LDL Cholesterol Calculated 77 mg/dL (<100); Sodium 138 mmol/L (137-145); Total Protein 6.6 g/dL (6.3-8.2); Triglycerides 112 mg/dL (35-150)
[2023-09-12 08:41] LABS: C-Reactive Protein Quant < 0.5 mg/dL (<1.0); Uric Acid 4.1 mg/dL (3.5-8.5)
[2023-09-12 08:46] LABS: Percent Iron Saturation 47 % (20-50); Total Iron Binding Capacity 300 ug/dL (261-462); Transferrin 238 mg/dL (206-381)
[2023-09-12 08:55] LABS: Free T3, Triiodothyronine Free 4.24 pg/mL (2.77-5.27); Free T4, Direct Thyroxine 1.02 ng/dL (0.78-2.19)
[2023-09-12 09:09] LABS: Prostate Specific Antigen Scrn 2.83 ng/mL (0.1-4.0)
[2023-09-12 09:10] LABS: Estradiol, Total 39.6 pg/mL
[2023-09-12 09:12] LABS: Ferritin 122 ng/mL (18-464)
[2023-09-12 09:27] LABS: Vitamin B12 801 pg/mL (239-931)
[2023-09-12 09:57] LABS: Luteinizing Hormone < 0.216 mIU/mL
[2023-09-12 10:03] LABS: Glucose 1 Hour 136 mg/dL (70-170)
[2023-09-12 10:04] LABS: Glucose 30 minute 142 mg/dL (70-180)
[2023-09-12 10:59] LABS: Glucose 1 Hour 30 Minutes 112 mg/dL (70-155)
[2023-09-12 11:04] LABS: Glucose Fasting 113 mg/dL (80-110)
[2023-09-13 10:36] LABS: Adrenocorticotropic Hormone 25.9 pg/mL (7.2-63.3)
[2023-09-14 08:36] LABS: Cholesterol, Total 150 mg/dL (100-199); HDL-Cholesterol 48 mg/dL (>39); HDL-Particle (Total) 37.6 umol/L (>=30.5); Historical Reading Comment: (.); LDL Particle 1075 nmol/L (<1000); LDL Size 20.4 nm (>20.5); LDL-Cholsterol 82 mg/dL (0-99); LP-IR Score 37 (<=45); Small LDL- Particle 533 nmol/L (<=527); Triglycerides 113 mg/dL (0-149)
[2023-09-14 12:09] LABS: Adiponectin 2.9 ug/mL (3.0-21.1)
[2023-09-14 16:40] LABS: IGF-1 216 ng/mL (59-230)
[2023-09-17 09:08] LABS: Percent Free Testosterone 3.43 % (1.50-4.20); Testosterone Free 25.15 ng/dL (5.00-21.00); Testosterone Total 733.2 ng/dL (264.0-916.0)
[2023-09-17 13:08] LABS: Insulin #2 41.1 uIU/mL (Not Estab.); Insulin #3 54.2 uIU/mL (Not Estab.); Insulin #4 41.7 uIU/mL (Not Estab.)
[2023-09-20 12:26] LABS: Melanocyte Stim Hormone 13 pg/mL (0-40)
== END ==
PROVIDERS: Pediatrics; PCP Physician Assistant; Referring Provider Physician Assistant; Visit Provider Physician Assistant
DX: Z12.5 Encounter for screening for malignant neoplasm of prostate (principal); E11.9 Type 2 diabetes mellitus without complications; R73.01 Impaired fasting glucose; E88.810 Metabolic syndrome; R73.09 Other abnormal glucose; I10 Essential (primary) hypertension; E78.5 Hyperlipidemia, unspecified; R79.89 Other specified abnormal findings of blood chemistry; N40.0 Benign prostatic hyperplasia without lower urinary tract symptoms; I65.29 Occlusion and stenosis of unspecified carotid artery; E29.1 Testicular hypofunction; R53.83 Other fatigue; M19.90 Unspecified osteoarthritis, unspecified site; G47.30 Sleep apnea, unspecified; R06.02 Shortness of breath; K21.9 Gastro-esophageal reflux disease without esophagitis; T88.7XXA Unspecified adverse effect of drug or medicament, initial encounter; M25.50 Pain in unspecified joint; G47.33 Obstructive sleep apnea (adult) (pediatric); N28.89 Other specified disorders of kidney and ureter; E66.9 Obesity, unspecified; Z78.9 Other specified health status
CPT/HCPCS: 36415; 80053; 80061; 82024; 82533; 82607; 82670; 82728; 82951; 83002; 83036; 83519; 83520; 83525; 83540; 83550; 83704; 84305; 84402; 84403; 84439; 84443; 84481; 84550; 85025; 86140; G0103

== ENCOUNTER → 2023-12-19 07:03 | Outpatient (CLI) | payer MEDICARE, OTHER, SELFPAY ==
[2023-12-19 08:01] LABS: Add Manual Diff / Slide Review NO; Basophils Absolute Auto 0 /uL (0-100); Basophils Percent Auto 0.8 % (0-2); Eosinophils Absolute Auto 200 /uL (0-450); Eosinophils Percent Auto 2.9 % (2-4); Hematocrit 42.5 % (41-53); Hemoglobin 14.8 g/dL (13.5-17.5); Lymphocytes Absolute Auto 1700 /uL (1100-4500); Lymphocytes Percent Auto 28.8 % (25-40); Mean Corpuscular HGB Conc 34.7 % (30-36); Mean Corpuscular Hemoglobin 32.1 PG (26-34); Mean Corpuscular Volume 92.4 fL (80-100); Monocytes Absolute Auto 300 /uL (0-900); Monocytes Percent Auto 5.3 % (3-14); Neutrophils Absolute Auto 3600 /uL (1500-7000); Neutrophils Percent Auto 62.2 % (50-75); Platelet Count 221 X10^3/uL (150-400); Red Cell Distribution Width 13.7 % (11.6-14.8); White Blood Cell Count 5.8 X10^3/uL (4.5-11.0)
[2023-12-19 08:25] LABS: Alanine Aminotransferase 23 IU/L (<50); Albumin 4.4 g/dL (3.5-5.0); Alkaline Phosphatase 55 U/L (38-126); Aspartate Aminotransferase 22 IU/L (17-59); BUN Creatinine Ratio 17.3 (6-22); Bilirubin Total 0.8 mg/dL (0.2-1.3); Blood Urea Nitrogen 13 mg/dL (9-20); Calcium 9.9 mg/dL (8.4-10.2); Carbon Dioxide 25 mmol/L (22-32); Chloride 107 mmol/L (98-107); Cholesterol 136 mg/dL (140-199); Estimated Glomerular Filt Rate > 60 mL/min (>60); Globulin 2.2 g/dL (1.7-4.1); Glucose 107 mg/dL (80-110); HDL Cholesterol 52 mg/dL (40-60); HEMOLYSIS < 15 (0-50); LDL Cholesterol Calculated 64 mg/dL (<100); Potassium 4.1 mmol/L (3.4-5.1); Sodium 141 mmol/L (137-145); Total Protein 6.6 g/dL (6.3-8.2); Triglycerides 98 mg/dL (35-150)
[2023-12-19 08:29] LABS: Glucose Fasting 108 mg/dL (80-110)
[2023-12-19 08:35] LABS: HEMOLYSIS < 15 (0-50); Iron 86 ug/dL (49-181)
[2023-12-19 08:43] LABS: Luteinizing Hormone 13.8 mIU/mL
[2023-12-19 08:45] LABS: Free T3, Triiodothyronine Free 4.24 pg/mL (2.77-5.27); Free T4, Direct Thyroxine 0.97 ng/dL (0.78-2.19); Percent Iron Saturation 29 % (20-50); Total Iron Binding Capacity 300 ug/dL (261-462); Transferrin 237 mg/dL (206-381)
[2023-12-19 08:56] LABS: Cortisol AM (Before 10AM) 12.1 ug/dL (4.46-22.7)
[2023-12-19 08:59] LABS: Thyroid Stimulating Hormone 1.74 uIU/mL (0.47-4.68)
[2023-12-19 09:18] LABS: Vitamin B12 804 pg/mL (239-931)
[2023-12-19 09:47] LABS: Glucose 30 minute 124 mg/dL (70-180)
[2023-12-19 10:14] LABS: Glucose 1 Hour 121 mg/dL (70-170)
[2023-12-19 11:05] LABS: Glucose 1 Hour 30 Minutes 108 mg/dL (70-155)
[2023-12-20 08:39] LABS: Insulin #2 28.6 uIU/mL (Not Estab.); Insulin #3 36.5 uIU/mL (Not Estab.); Insulin #4 34.3 uIU/mL (Not Estab.)
[2023-12-20 20:09] LABS: IGF-1 236 ng/mL (59-230)
== END ==
LOC: LAB 07:07
PROVIDERS: PCP Physician Assistant; Referring Provider Physician Assistant; Visit Provider Physician Assistant
DX: E11.9 Type 2 diabetes mellitus without complications (principal); R73.03 Prediabetes; E88.810 Metabolic syndrome; R73.01 Impaired fasting glucose; E88.819 Insulin resistance, unspecified; I10 Essential (primary) hypertension; E78.5 Hyperlipidemia, unspecified; R79.89 Other specified abnormal findings of blood chemistry; R73.09 Other abnormal glucose; E29.1 Testicular hypofunction; M19.90 Unspecified osteoarthritis, unspecified site; R53.83 Other fatigue; G47.30 Sleep apnea, unspecified; R06.02 Shortness of breath; K21.9 Gastro-esophageal reflux disease without esophagitis; T88.7XXA Unspecified adverse effect of drug or medicament, initial encounter; M25.50 Pain in unspecified joint; N40.0 Benign prostatic hyperplasia without lower urinary tract symptoms; I65.29 Occlusion and stenosis of unspecified carotid artery; G47.33 Obstructive sleep apnea (adult) (pediatric); Z78.9 Other specified health status
CPT/HCPCS: 36415; 80053; 80061; 82024; 82533; 82607; 82670; 82951; 83002; 83036; 83519; 83520; 83525; 83540; 83550; 83704; 84305; 84402; 84403; 84439; 84443; 84481; 85025

== ENCOUNTER 2024-04-26 19:22 | Emergency (ER) | payer MEDICARE, OTHER, SELFPAY ==
[2024-04-26] VITALS (15 sets, daily range): BP systolic 86–127; BP diastolic 49–92; PULSE 64–165; RESP 11–26; TEMP 36.2; O2SAT 97–99; BMI 29.0
--- NOTE | 2024-04-26 19:38 | EKG_ITS ---
[place] [id number] [place] [id number] Test Date: 2024-04-26 Pat Name: Nancy Linares Department: [facility] Room: Gender: Male Human Resource Officer: BKAARI : 1955 Requested By: Order Number: [id number] Reading MD: Handy Yi Measurements Intervals [place] Rate: 173 P: CA: QRS: -16 QRSD: 66 T: 34 QT: 266 QTc: 451 Interpretive Statements Critical Test Result: High HR Supraventricular tachycardia Inferior infarct , age undetermined Electronically Signed On 04-29-2024 11:11:38 PST by Handy Yi
--- NOTE | 2024-04-26 19:40 | EKG_ITS ---
[place] [address] [place] [id number] Test Date: 2024-04-26 Pat Name: Nancy Linares Department: [facility] Room: Gender: Male Manager Cath Lab: BAKARI : 1955 Requested By: Order Number: [id number] Reading MD: Handy Yi Measurements Intervals [place] Rate: 79 P: 31 TX: 172 QRS: -27 QRSD: 82 T: 42 QT: 328 QTc: 376 Interpretive Statements Sinus rhythm with marked sinus arrhythmia with premature atrial complexes with aberrant conduction Electronically Signed On 04-29-2024 11:11:45 PST by Handy Yi
--- NOTE | 2024-04-26 19:41 | DI.RAD.S_ITS ---
PROCEDURE: XR CHEST 1V INDICATIONS: chest pain TECHNIQUE: One view of the chest was acquired. COMPARISON: [facility], CR, XR CHEST 2V, 11/19/2021, 12:05. FINDINGS: Surgical changes and devices: None. Lungs and pleura: Lungs are clear. No pleural effusions or pneumothorax. Mediastinum: Mediastinal contours appear normal. Heart size is normal. Bones and chest wall: No suspicious bony lesions. Overlying soft tissues appear unremarkable. IMPRESSION: No acute cardiopulmonary abnormality is seen. Dictated by: Marvin Oh M.D. on 04/26/2024 at 19:59 Approved by: Marvin Oh M.D. on 04/26/2024 at 19:59
[2024-04-26 19:59] LABS: Add Manual Diff / Slide Review NO; Basophils Absolute Auto 100 /uL (0-100); Basophils Percent Auto 0.7 % (0-2); Eosinophils Absolute Auto 200 /uL (0-450); Eosinophils Percent Auto 3.1 % (2-4); Hematocrit 42.2 % (41-53); Hemoglobin 14.7 g/dL (13.5-17.5); Lymphocytes Absolute Auto 2600 /uL (1100-4500); Mean Corpuscular HGB Conc 34.8 % (30-36); Mean Corpuscular Hemoglobin 32.6 PG (26-34); Mean Corpuscular Volume 93.8 fL (80-100); Monocytes Absolute Auto 500 /uL (0-900); Monocytes Percent Auto 6.8 % (3-14); Neutrophils Absolute Auto 3900 /uL (1500-7000); Neutrophils Percent Auto 53.4 % (50-75); Platelet Count 214 X10^3/uL (150-400); Red Cell Distribution Width 13.5 % (11.6-14.8); White Blood Cell Count 7.3 X10^3/uL (4.5-11.0)
[2024-04-26 20:08] LABS: Prothrombin Time 10.8 SECONDS (9.4-12.5)
[2024-04-26 20:11] LABS: PTT Partial Thromboplastin Tim 34 SECONDS (25.1-36.5)
[2024-04-26 20:12] LABS: Alanine Aminotransferase 39 IU/L (<50); Albumin 4.1 g/dL (3.5-5.0); Albumin Globulin Ratio 1.6 (1.0-2.8); Alkaline Phosphatase 46 U/L (38-126); Aspartate Aminotransferase 35 IU/L (17-59); BUN Creatinine Ratio 17.1 (6-22); Bilirubin Total 0.4 mg/dL (0.2-1.3); Blood Urea Nitrogen 13 mg/dL (9-20); Calcium 9.2 mg/dL (8.4-10.2); Carbon Dioxide 22 mmol/L (22-32); Chloride 110 mmol/L (98-107); Creatine Kinase 78 U/L (55-170); Estimated Glomerular Filt Rate > 60 mL/min (>60); Globulin 2.5 g/dL (1.7-4.1); Glucose 145 mg/dL (80-110); HEMOLYSIS 17 (0-50); Lipase 97 U/L (23-300); Magnesium 1.9 mg/dL (1.6-2.3); Potassium 3.7 mmol/L (3.4-5.1); Sodium 138 mmol/L (137-145); Total Protein 6.6 g/dL (6.3-8.2)
--- NOTE | 2024-04-26 20:12 | ED.ARRPALP ---
HPI - Arrhythmia/Palpitations General Chief Complaint: Arrhythmia/Palpitations Stated Complaint: Sent by MD for EKG Time Seen by Provider: 04/26/24 19:42 Source: patient Mode of arrival: Ambulatory History of Present Illness HPI narrative: 68-year-old male with history of hypertension presents for palpitations since 11:00 a.m.. Patient reports history of SVT 15 years ago, but none since. Followed by Dr. Davis for cardiology. He has had intermittent palpitations over the last several months and has worn a zio patch, however it didn't capture any abnormalities. Patient reports recent echo with his metal container maker that was reportedly normal. Patient feels lightheaded with onset of palpitations. Related Data Home Medications Medication Instructions Recorded Confirmed Respironics DreamStation 2 08/16/21 04/18/24 naltrexone 50 mg tablet 50 mg PO DAILY 02/15/22 04/18/24 rosuvastatin PO 02/15/22 04/18/24 anastrozole 1 mg tablet 1 mg PO 3XW 08/08/22 04/18/24 losartan 25 mg tablet mg PO 02/08/23 04/18/24 rosuvastatin 10 mg tablet 10 mg PO ONCE PM 02/08/23 04/18/24 tirzepatide 7.5 mg/0.5 mL mg SUBCUT 02/08/23 04/18/24 subcutaneous pen injector (Dony) Previous Rx's Medication Instructions Recorded tadalafil 5 mg tablet 5 mg PO DAILY #30 tabs 01/06/23 metoprolol succinate 25 mg 25 mg PO DAILY #60 tabs 04/26/24 tablet,extended release 24 hr Allergies Allergy/AdvReac Type Severity Reaction Status Date / Time amoxicillin AdvReac Intermediate Verified 04/18/24 09:51 finasteride AdvReac Intermediate Loss of Verified 04/18/24 09:51 libido tamsulosin AdvReac Mild Retrograde Verified 04/18/24 09:51 ejaculation Patient History Medical History History of high blood pressure Renal calcification Osteoarthritis involving multiple joints on both sides of body Vision disorder Sleep apnea (~2017) Asthma (~2014) Allergies (~1999) Anxiety and depression Shoulder pain (~1989) Fractures (~2010) Chicken pox Tinnitus (~1973) Hearing loss (~2016) Gastric ulcer (~1982) Cardiac arrhythmia (~1999) Skin cancer (~2009) Surgical History History of appendectomy Anesthesia History of surgery (~2017) History of hernia repair (~2009) History of arthroscopic knee surgery (~2004) History of total left knee replacement (~2015) Status post left partial knee replacement (~2007) History of arthroscopic knee surgery Family History Father Diabetes mellitus History of heart disease Brother Mental health problem Suicide Grandfather History of heart disease Grandfather Aneurysm Grandmother History of appendectomy Social History marital status: number of children: 4 Smoking Status: Former smoker alcohol intake: current caffeine: Yes Smoking Status: Former smoker Exam Initial Vital Signs Initial Vital Signs: Vital Signs Temperature 97.1 F L 04/26/24 19:30 Pulse Rate 78 04/26/24 19:30 Respiratory Rate 16 04/26/24 19:30 Blood Pressure 120/82 04/26/24 19:30 Pulse Oximetry 98 04/26/24 19:30 Oxygen Delivery Method Room Air 04/26/24 19:30 Const: Awake, alert, no acute distress, nontoxic appearing Cardiac: tachycardia, regular rhythm RESP: unlabored, clear bilaterally, no wheezing Skin: Warm, Dry, intact, no rashes Neuro: AO x3, CN II-XII grossly intact, moves all extremities Course Orders Ordered: ED Orders 04/26/24 19:27 EKG-12 Lead Stat 04/26/24 19:41 XR chest 1V Stat EKG-12 Lead Stat 04/26/24 19:50 Complete Blood Count AUTO DIFF Stat Comprehensive Metabolic Panel Stat Lipase Stat Magnesium Stat NT-proBNP (BNP-Adult 18+) Stat PTT Partial Thromboplastin Simone Stat Prothrombin Time INR Stat Troponin & CK Cardiac Panel Stat Discontinued Medications Aspirin (Aspirin 81 Mg Chew Tab) 324 mg PO NOW ONE Stop: 04/26/24 19:42 Metoprolol Succinate (Metoprolol Er 25 Mg Tablet) 25 mg PO NOW ONE Stop: 04/26/24 21:06 Last Admin: 04/26/24 21:10 Dose: 25 mg Documented By: AB Metoprolol Tartrate (Metoprolol Tartrate 5 Mg/5 Ml Inj) 5 mg IV Q5M WILDA Stop: 04/26/24 19:56 Last Admin: 04/26/24 20:20 Dose: 5 mg Documented By: Vital Signs Vital signs: Vital Signs - 8 hr 04/26/24 19:30 04/26/24 19:46 04/26/24 19:47 Temperature 97.1 F L Pulse Rate 78 75 161 H Respiratory Rate 16 22 11 L Blood Pressure 120/82 Pulse Oximetry 98 98 98 Oxygen Delivery Method Room Air Room Air 04/26/24 19:47 04/26/24 20:00 04/26/24 20:01 Temperature Pulse Rate 165 H 164 H Respiratory Rate 18 23 Blood Pressure 121/73 Pulse Oximetry 97 97 Oxygen Delivery Method 04/26/24 20:01 04/26/24 20:03 04/26/24 20:03 Temperature Pulse Rate 76 Respiratory Rate 24 Blood Pressure 96/49 L 127/92 H Pulse Oximetry 98 Oxygen Delivery Method Room Air 04/26/24 20:15 04/26/24 20:30 04/26/24 20:30 Temperature Pulse Rate 163 H 65 Respiratory Rate 11 L 17 Blood Pressure 105/72 Pulse Oximetry 97 97 Oxygen Delivery Method 04/26/24 20:45 04/26/24 20:45 04/26/24 21:00 Temperature Pulse Rate 67 145 H Respiratory Rate 16 21 Blood Pressure 102/67 Pulse Oximetry 98 98 Oxygen Delivery Method 04/26/24 21:00 04/26/24 21:02 04/26/24 21:02 Temperature Pulse Rate 68 Respiratory Rate 18 Blood Pressure 86/64 L 109/90 Pulse Oximetry 98 Oxygen Delivery Method 04/26/24 21:10 04/26/24 21:15 04/26/24 21:15 Temperature Pulse Rate 68 67 Respiratory Rate 26 H Blood Pressure 109/90 113/76 Pulse Oximetry 98 Oxygen Delivery Method 04/26/24 21:30 04/26/24 21:30 04/26/24 21:45 Temperature Pulse Rate 64 64 Respiratory Rate 18 19 Blood Pressure 111/72 Pulse Oximetry 98 99 Oxygen Delivery Method Room Air 04/26/24 21:45 Temperature Pulse Rate Respiratory Rate Blood Pressure 108/73 Pulse Oximetry Oxygen Delivery Method MDM - Arrhythmia/Palpitations Differential Diagnosis Differential diagnosis: Likely palpitations, sinus tachycardia and artial fibrillation Lab Data 04/26/24 19:50 04/26/24 19:50 Labs: Lab Results 04/26/24 Range/Units 19:50 WBC 7.3 (4.5-11.0) X10^3/uL RBC 4.50 (4.5-5.9) X10^6/uL Hgb 14.7 (13.5-17.5) g/dL Hct 42.2 (41-53) % MCV 93.8 (80-100) fL MCH 32.6 (26-34) PG MCHC 34.8 (30-36) % RDW 13.5 (11.6-14.8) % Plt Count 214 (150-400) X10^3/uL Neut % (Auto) 53.4 (50-75) % Lymph % (Auto) 36.0 (25-40) % [place] % (Auto) 6.8 (3-14) % Eos % (Auto) 3.1 (2-4) % Baso % (Auto) 0.7 (0-2) % Neut # (Auto) 3900 (2744-8177) /uL Lymph # (Auto) 2600 (3119-4500) /uL [place] # (Auto) 500 (0-900) /uL Eos # (Auto) 200 (0-450) /uL Baso # (Auto) 100 (0-100) /uL PT 10.8 (9.4-12.5) SECONDS INR 1.0 (0.9-1.3) APTT 34 (25.1-36.5) SECONDS Sodium 138 (137-145) mmol/L Potassium 3.7 (3.4-5.1) mmol/L Chloride 110 H (98-107) mmol/L Carbon Dioxide 22 (22-32) mmol/L BUN 13 (9-20) mg/dL Creatinine 0.76 (0.66-1.25) mg/dL Estimated GFR > 60 (>60) mL/min BUN/Creatinine Ratio 17.1 (6-22) Glucose 145 H (80-110) mg/dL Calcium 9.2 (8.4-10.2) mg/dL Magnesium 1.9 (1.6-2.3) mg/dL Total Bilirubin 0.4 (0.2-1.3) mg/dL AST 35 (17-59) IU/L ALT 39 (<50) IU/L Alkaline Phosphatase 46 (38-126) U/L Total Creatine Kinase 78 (55-170) U/L Troponin I < 0.012 (0.01-0.034) ng/mL NT-Pro-B Natriuret Pep 31 (<125) pg/mL Total Protein 6.6 (6.3-8.2) g/dL Albumin 4.1 (3.5-5.0) g/dL Globulin 2.5 (1.7-4.1) g/dL Albumin/Globulin Ratio 1.6 (1.0-2.8) Lipase 97 (23-300) U/L Imaging Data Chest x-ray: My Impression: PROCEDURE: XR CHEST 1V INDICATIONS: chest pain TECHNIQUE: One view of the chest was acquired. COMPARISON: [facility], , XR CHEST 2V, 11/19/2021, 12:05. FINDINGS: Surgical changes and devices: None. Lungs and pleura: Lungs are clear. No pleural effusions or pneumothorax. Mediastinum: Mediastinal contours appear normal. Heart size is normal. Bones and chest wall: No suspicious bony lesions. Overlying soft tissues appear unremarkable. IMPRESSION: No acute cardiopulmonary abnormality is seen. Dictated by: Marvin Oh M.D. on 04/26/2024 at 19:59 Approved by: Marvin Oh M.D. on 04/26/2024 at 19:59 ECG Data Attestation: I personally reviewed and interpreted this ECG as follows: Interpretation: EKG 1: SVT at a rate of 173 beats per minute. Normal axis EKG 2: normal sinus rhythm at 79 beats per minute. Normal IN. No ST T wave changes MDM Narrative Medical decision making narrative: patient presenting for palpitations since 11:00 a.m.. Patient initially in normal sinus rhythm at a rate of about 70 beats per minute, however he was witnessed on cardiac monitoring to quickly flip into SVT at a rate of 160-170 beats per minute. Patient states that he feels very lightheaded during these episodes. These normally only last for a minute or 2 and then the patient will self convert into sinus rhythm Again. Case discussed with patient's Cardiology office. Spoke with Dr. Xie of cardiology, who recommended IV metoprolol and if this is successful patient should start po metoprolol with future discussion with cardiology about possible ablation. patient was given IV and p.o. metoprolol with successful cessation of SVT. Patient monitored and no recurrence of SVT noted again. Patient informed of cardiology recommendations and he is amenable to starting daily metoprolol at this time. ED return precautions discussed. Discharge Plan Departure Patient Disposition: Home Clinical Impression: Paroxysmal SVT (supraventricular tachycardia) Instructions: DI for Paroxysmal Supraventricular Tachycardia Activity Restrictions/Additional Instructions: Your laboratory work today looked normal. Your SVT seemed to be improved with the metoprolol. Take this medication daily. If your blood pressure becomes too low then you may decrease your losartan to 25 mg. If it continues to be low and you feel lightheaded or dizzy then you may stop taking losartan completely. If your heart rate increases and you have persistent SVT then you may take a single extra dose of the metoprolol. If this does not improve your heart rate after 30 minutes to 1 hour then you should go to the ER for repeat evaluation and possible treatment. Follow up with your metal container maker. Prescriptions: New metoprolol succinate 25 mg tablet extended release 24 hr 25 mg PO DAILY Qty: 60 0RF No Action rosuvastatin 10 mg tablet 10 mg PO ONCE PM losartan 25 mg tablet PO Mounjaro 7.5 mg/0.5 mL pen injector SUBCUT Patient Comments: [NO ORIGINAL SIG] tadalafil 5 mg tablet 5 mg PO DAILY Qty: 30 0RF anastrozole 1 mg tablet 1 mg PO 3XW naltrexone 50 mg tablet 50 mg PO DAILY rosuvastatin PO (DME) [employer] DreamStation 2 See Rx Instructions .Route .MEDSUPPLY Rx Instructions: CPAP Min: 5 Max: 15 DME: Referrals: Dorcas Hines PA-C [Primary Care Provider] - Stand Alone Forms: Patient Portal/API/Survey
[2024-04-26] MEDS: METOPROLOL TARTRATE 5 MG/5 ML INJ IV (20:20)
[2024-04-26 20:24] LABS: NT-proBNP (BNP-Adult 18+) 31 pg/mL (<125); Troponin I < 0.012 ng/mL (0.01-0.034)
[2024-04-26] MEDS: METOPROLOL ER 25 MG TABLET PO (21:10)
== END 2024-04-26 22:04 | disposition home or self-care (01) ==
PROVIDERS: Emergency Provider Emergency Medicine; PCP Physician Assistant
DX: I47.10 Supraventricular tachycardia, unspecified (principal)
CPT/HCPCS: 36415; 71045; 80053; 82550; 83690; 83735; 83880; 84484; 85025; 85610; 85730; 93005; 96374; 99284

== ENCOUNTER → 2025-04-29 15:36 | Outpatient (CLI) | payer MEDICARE, OTHER, SELFPAY ==
--- NOTE | 2025-04-29 15:37 | DI.US.S_ITS ---
PROCEDURE: US CAROTID DOPPLER BI INDICATIONS: PULSATILE TINNITUS OF RIGHT EAR TECHNIQUE: Color and pulse Doppler interrogation was performed of both carotid systems, with image documentation and velocity measurements. COMPARISON: None. FINDINGS: Stenosis calculations are based on SRU (Society of Radiologists in Ultrasound) criteria. Right side: Common carotid artery peak systolic velocity: 84 cm/sec. Internal carotid artery peak systolic velocity: 73 cm/sec. Internal carotid artery end diastolic velocity: 25 cm/sec. External carotid artery peak systolic velocity: 93 cm/sec. ICA/CCA peak systolic ratio: 0.9 . Beltran scale imaging description: Atherosclerotic plaques Percent internal carotid artery stenosis: Less than 50% . Vertebral artery: Flow direction is antegrade. Left side: Common carotid artery peak systolic velocity: 69 cm/sec. Internal carotid artery peak systolic velocity: 84 cm/sec. Internal carotid artery end diastolic velocity: 30 cm/sec. External carotid artery peak systolic velocity: 116 cm/sec. ICA/CCA peak systolic ratio: 1.2 . Beltran scale imaging description: Atherosclerotic plaques Percent internal carotid artery stenosis: Less than 50% . Vertebral artery: Flow direction is antegrade. IMPRESSION: 1. In the right carotid artery, there is less than 50% stenosis based on peak systolic velocity criteria. 2. In the left carotid artery, there is less than 50% stenosis based on peak systolic velocity criteria. 3. Antegrade vertebral arteries. Dictated by: Mann Sierra M.D. on 04/30/2025 at 11:15 Approved by: Mann Sierra M.D. on 04/30/2025 at 11:21
== END ==
LOC: US 15:37
PROVIDERS: PCP Physician Assistant; Referring Provider Physician Assistant
DX: H93.A1 Pulsatile tinnitus, right ear (principal); I65.23 Occlusion and stenosis of bilateral carotid arteries
CPT/HCPCS: 93880